=== PATIENT | female | born 1965 | race Caucasian/White ===

== ENCOUNTER → 2020-11-02 | Outpatient (CLI) | payer OTHER | LOC: EXRD 10:19 | DX: M54.12 Radiculopathy, cervical region (principal) | CPT/HCPCS: 72040 ==

== ENCOUNTER → 2020-12-16 | Outpatient (CLI) | payer OTHER | LOC: MAMO 08:10 | DX: Z12.31 Encounter for screening mammogram for malignant neoplasm of breast (principal); R79.89 Other specified abnormal findings of blood chemistry; K76.0 Fatty (change of) liver, not elsewhere classified | CPT/HCPCS: 76700; 77063; 77067 ==

== ENCOUNTER → 2021-01-03 | Outpatient (CLI) | payer OTHER | LOC: EXRD 11:00 | DX: M54.12 Radiculopathy, cervical region (principal); Z98.1 Arthrodesis status | CPT/HCPCS: 72040 ==

== ENCOUNTER → 2021-01-12 | Outpatient (CLI) | payer OTHER | LOC: EMI 12:58 | DX: M47.22 Other spondylosis with radiculopathy, cervical region (principal) | CPT/HCPCS: 72141 ==